=== PATIENT | female | born 1945 | race Caucasian/White ===

== ENCOUNTER → 2017-02-25 | Outpatient (CLI) | payer OTHER ==
[~2017-02-25] MED LIST: ASPIR-LOW81 MG PO; CRESTOR10 MG PO; EYE DROPS15 M1 OP; VITAMIN D-32000 UNI1 PO; ZOFRAN ODT8 MG PO
== END | disposition home or self-care (01) ==
LOC: RAD 10:28
DX: R05 Cough (principal)
CPT/HCPCS: 71046